=== PATIENT | female | born 1945 | race Caucasian/White ===

== ENCOUNTER → 2023-02-28 | Outpatient (CLI) | payer MEDICARE ==
[2023-02-28 16:36] LABS: African American GFR (CKD) >90 (>60 ml/min/1.73 sqM); Blood Urea Nitrogen 17 mg/dL (7-17); Non-African American GFR(CKD) 87 (>60 ml/min/1.73 sqM)
--- NOTE | 2023-02-28 22:05 | CT ---
EXAMINATION TYPE: CT soft tissue neck w con CT DLP: 335.80 mGycm, Automated exposure control for dose reduction was used. DATE OF EXAM: 02/28/2023 5:03 PM COMPARISON: 12/06/2022, PET/CT 02/15/2023. CLINICAL INDICATION:Female, 77 years old with history of R93.89 ABN PET SCAN;, pt has hx of left uppe r lobe lung ca. abnormal outside PET scan results TECHNIQUE: Standard enhanced CT of the neck. Axial sections with coronal and sagittal reformats were obtained. Contrast used:80ml mL of Isovue 370 with IV Contrast, Oral contrast used: none. FINDINGS: Brain: Visualized portions are grossly unremarkable. Orbits: Bilaterally aphakia. Sinuses: Opacification of the left frontal sinus. Spaces of the neck: Clear and symmetric. No abnormality in the area of vague FDG activity within the left neck near the hyoid bone, muscle is felt to be within this region just anterior to the vertebral bodies. No evidence for enhancing mass. No lymphadenopathy. Musculoskeletal: No acute osseous pathology. Lymph nodes: Multiple nonenlarged lymph nodes are seen along both anterior chains of the neck. Vascular structures: Visualized major arteries are patent without evidence of aneurysm. The bilateral vertebral arteries and internal carotid arteries as well as the common carotid arteries are patent. Thoracic Inlet/airway: Airway is patent. There is moderate to severe emphysema changes in the upper l ungs. Left upper lung masslike consolidation measuring 4.4 x 3.6 cm and demonstrates a streaky atelec tasis/scarring extending to the pleura. Additional pulmonary nodule in the left r lower lung superior segment measuring 10 x 8 mm. Soft tissues/Thyroid: Thyroid and remainder of the soft tissues are unremarkable. Other: none. IMPRESSION 1. Vague FDG activity reported on prior the level of the left hyoid bone without enhancing mass or l ymphadenopathy. Favored represent muscle strain on prior PET/CT. 2. No evidence for acute process involving the neck. No evidence for lymphadenopathy. This finding i s similar to 02/15/2023 where there was no FDG avid lymphadenopathy. 3. Patent vasculature. 4. Redemonstration of left upper lung FDG avid malignancy and left lower lobe superior segment pulmo nary nodule. 5. Severe emphysema.
== END | disposition home or self-care (01) ==
LOC: RADCTMAIN 15:50
PROVIDERS: ATTEND Family Medicine
DX: J43.9 Emphysema, unspecified (principal); R93.89 Abnormal findings on diagnostic imaging of other specified body structures; R91.1 Solitary pulmonary nodule; Z85.118 Personal history of other malignant neoplasm of bronchus and lung
CPT/HCPCS: 82565; 84520; 70491; 36415; Q9967